=== PATIENT | female | born 1995 | race Caucasian/White ===

== ENCOUNTER 2019-07-19 19:19 | Emergency (ER) | payer MEDICAID ==
[2019-07-19 19:32] VITALS: BP 115/64
--- NOTE | 2019-07-19 19:48 | ED Physician Documentation ---
History of Present Illness - Stated complaint Stated Complaint: R EAR PAIN - Chief complaint Chief Complaint: General - History obtained from History obtained from: Patient - Additonal information Additional information: Patient is a healthy 24-year-old female with no past medical history. She is here today with a 3 to 4-day history of right-sided ear aches. She states she now has a left-sided earache that developed today. She denies any runny nose, sinus congestion, sore throat, neck pain, chills, or fevers. Has no dyspnea or cough. She states she did travel back from [place] approximately 1 week ago by plane. Had no symptoms after that for approximately 3 to 4 days. Patient denies any medications for her discomfort. She has no further complaints or concerns at this time. Review of Systems Constitutional: denies: Fever, Myalgias Eyes: denies: Discharge Ears: reports: Ear pain. denies: Loss of hearing, Drainage/discharge, Tinnitus/ringing, Foreign body, Reviewed and negative Nose: denies: Rhinorrhea / runny nose Throat: denies: Dental pain / toothache, Oral lesions / sores, Sore throat, Swollen tonsils Respiratory: denies: Dyspnea, Cough, Hemoptysis GI: denies: Abdominal Pain, Nausea, Vomiting Skin: denies: Rash Musculoskeletal: denies: Neck pain PD PAST MEDICAL HISTORY - Past Medical History Past Medical History: Yes Psych: Depression - Past Surgical History Past Surgical History: Yes Ortho: Other - Social History Does the pt smoke?: No Smoking Status: Never smoker Does the pt drink ETOH?: No Does the pt have substance abuse?: No - Immunizations Immunizations are current?: Yes PD ED PE NORMAL - General General: Alert and oriented X 3 - HEENT HEENT: Atraumatic, PERRL, Moist mucous membranes, Other (Bilateral tympanic membrane's are pearly zaragoza. No bulging or erythema was appreciated. Bony ossicles are visualized.Ear canals are clear, no edema, or erythema.) - Neck Neck: Supple, no meningeal sign - Cardiac Cardiac: RRR - Respiratory Respiratory: No respiratory distress Results - Vitals Vitals: Vital Signs - 24 hr 07/19/19 19:30 Temperature 36.8 C Heart Rate 91 Respiratory 16 Rate Blood Pressure 115/64 O2 Saturation 97 Oxygen O2 Source Room air PD MEDICAL DECISION MAKING - ED course Complexity details: other (Discussed symptomatic care at home. Patient agrees to take Tylenol or Profen as needed. She can also add [id number]-[id number] pseudoephedrine. Discuss the differential diagnosis which also included eustachian tube dysfunction. She is asked to contact her primary care provider if her symptoms persist. She may return to the emergency room anytime for any emergent changes or concerns.) Departure - Departure Disposition: ED Transfer to [facility] Clinical Impression: Otalgia of both ears Condition: Stable Comments: Use [id number] Tylenol 500 mg every 6-8 hours as needed for comfort. You may also use jxjd-bqd-[id number] ibuprofen 600 mg every 8 hours additionally. Cjws-bpi-esdhqbk pseudoephedrine may also help with your symptoms. If your symptoms do persist please contact your primary care provider to schedule follow-up appointment. Please return to emergency room anytime for emergent changes or concern.
== END 2019-07-19 19:54 | disposition home or self-care (01) ==
LOC: ED 19:19
DX: H92.03 Otalgia, bilateral (principal)
CPT/HCPCS: 99281; 99283

== ENCOUNTER 2019-11-11 16:04 | Emergency (ER) | payer MEDICAID ==
[2019-11-11] MEDS ORDERED: SODIUM CHLORIDE 0.9% 1,000 ML IV STA (16:24)
[2019-11-11] MEDS ORDERED: diphenhydrAMINE INJ 50 MG/ML VIAL IVP STA (16:24)
[2019-11-11] MEDS ORDERED: METOCLOPRAMIDE 10 MG/2 ML VIAL IVP STA (16:24)
--- NOTE | 2019-11-11 16:29 | ED Physician Documentation ---
History of Present Illness - Stated complaint Stated Complaint: RAPID HR, SHAKY - Chief complaint Chief Complaint: Abd Pain - History obtained from History obtained from: Patient - Additonal information Additional information: 24-year-old woman with history of depression anxiety presents with multiple complaints, most pressing is that with a history of only minimal migraines in the past she has had increased headaches that are intermittent over the last week. She describes throbbing up skip occipital headaches with spots in her vision, light sensitivity and nausea. Also since yesterday she has had diarrhea but not severe. Only every few hours. No blood in it. No fevers. She notes rapid heart rate starting about an hour ago. Denies drug or alcohol abuse. No possibility of she thinks. Review of Systems Constitutional: reports: Fatigue. denies: Fever, Chills Eyes: reports: Photophobia. denies: Decreased vision Ears: denies: Loss of hearing, Ear pain Nose: denies: Rhinorrhea / runny nose, Congestion Throat: denies: Sore throat Cardiac: denies: Chest pain / pressure, Palpitations Respiratory: denies: Dyspnea, Cough GI: reports: Nausea, Diarrhea. denies: Abdominal Pain, Vomiting : denies: Dysuria, Frequency PD PAST MEDICAL HISTORY - Past Medical History Psych: Depression - Past Surgical History Past Surgical History: Yes Ortho: Other - Present Medications Home Medications: Ambulatory Orders Medication Instructions Recorded Confirmed Bupropion HCl [Wellbutrin Xl] 300 mg PO DAILY 11/11/19 11/11/19 DULoxetine [Cymbalta] 60 mg PO DAILY 11/11/19 11/11/19 SUMAtriptan [Imitrex] 25 mg PO BID PRN #10 tablet 11/11/19 - Allergies Allergies/Adverse Reactions: Allergies Allergy/AdvReac Type Severity Reaction Status Date / Time DAYQUIL/NYQUIL cough Allergy Unknown Uncoded 11/11/19 16:21 medication - Social History Does the pt smoke?: No Smoking Status: Never smoker Does the pt drink ETOH?: No Does the pt have substance abuse?: No - Immunizations Immunizations are current?: Yes PD ED PE NORMAL - Vitals Vital signs reviewed: Yes - General General: Alert and oriented X 3, No acute distress - HEENT HEENT: PERRL, EOMI, Pharynx benign - Neck Neck: Supple, no meningeal sign, No bony TTP - Cardiac Cardiac: RRR, No murmur - Respiratory Respiratory: No respiratory distress, Clear bilaterally - Abdomen Abdomen: Normal bowel sounds, Soft, Non tender - Back Back: No CVA TTP, No spinal TTP - Derm Derm: Normal color, Warm and dry - Extremities Extremities: No edema, No calf tenderness / cord - Neuro Neuro: Alert and oriented X 3, No motor deficit, No sensory deficit, Normal speech Results - Vitals Vitals: Vital Signs - 24 hr 11/11/19 11/11/19 11/11/19 16:06 17:05 17:59 Temperature 37.2 C Heart Rate 106 H 96 89 Respiratory 18 18 18 Rate Blood Pressure 126/104 H 114/81 H 116/81 H O2 Saturation 100 98 98 Oxygen O2 Source Room air - EKG (time done) 1633 Rate: Rate (enter#) (96) Rhythm: NSR [place]: Normal Intervals: Normal [place] QRS: Normal Ischemia: Normal ST segments Computer interpretation: Agree with computer - Labs Labs: Laboratory Tests 11/11/19 11/11/19 11/11/19 16:36 16:37 16:37 WBC 7.4 RBC 4.85 Hgb 14.3 Hct 42.3 MCV 87.2 MCH 29.5 MCHC 33.8 RDW 12.3 Plt Count 355 MPV 9.3 Neut # (Auto) 4.7 Lymph # (Auto) 1.7 [place] # (Auto) 0.8 Eos # (Auto) 0.1 Baso # (Auto) 0.0 Absolute Nucleated RBC 0.00 Nucleated RBC % 0.0 D-Dimer Sodium 136 Potassium 3.8 Chloride 101 Carbon Dioxide 25 Anion Gap 10.0 BUN 13 Creatinine 0.8 Estimated GFR (MDRD) 88 L Glucose 116 H Calcium 9.1 Total Bilirubin 1.0 AST 20 ALT 23 Alkaline Phosphatase 75 Total Protein 8.2 Albumin 4.0 Globulin 4.2 Albumin/Globulin Ratio 1.0 Lipase 26 TSH Urine Color YELLOW Urine Clarity HAZY Urine pH 6.0 Ur Specific [place] 1.025 Urine Protein NEGATIVE Urine Glucose (UA) NEGATIVE Urine Ketones NEGATIVE Urine Occult Blood MODERATE H Urine Nitrite NEGATIVE Urine Bilirubin NEGATIVE Urine Urobilinogen 0.2 (NORMAL) Ur Leukocyte Esterase NEGATIVE Urine RBC 0-5 Urine WBC 0-3 Ur Squamous Epith Cells FEW Squamous Urine Bacteria Rare Ur Microscopic Review INDICATED Urine Culture Comments NOT INDICATED Urine HCG, Qual NEGATIVE Urine Opiates Screen NEGATIVE Ur Oxycodone Screen NEGATIVE Urine Methadone Screen NEGATIVE Ur Propoxyphene Screen NEGATIVE Ur Barbiturates Screen NEGATIVE Ur Tricyclics Screen NEGATIVE Ur Phencyclidine Scrn NEGATIVE Ur Amphetamine Screen NEGATIVE U Methamphetamines Scrn NEGATIVE U Benzodiazepines Scrn NEGATIVE Urine Cocaine Screen NEGATIVE U Cannabinoids Screen NEGATIVE 11/11/19 11/11/19 16:37 16:37 WBC RBC Hgb Hct MCV MCH MCHC RDW Plt Count MPV Neut # (Auto) Lymph # (Auto) [place] # (Auto) Eos # (Auto) Baso # (Auto) Absolute Nucleated RBC Nucleated RBC % D-Dimer 224.8 Sodium Potassium Chloride Carbon Dioxide Anion Gap BUN Creatinine Estimated GFR (MDRD) Glucose Calcium Total Bilirubin AST ALT Alkaline Phosphatase Total Protein Albumin Globulin Albumin/Globulin Ratio Lipase TSH 1.94 Urine Color Urine Clarity Urine pH Ur Specific [place] Urine Protein Urine Glucose (UA) Urine Ketones Urine Occult Blood Urine Nitrite Urine Bilirubin Urine Urobilinogen Ur Leukocyte Esterase Urine RBC Urine WBC Ur Squamous Epith Cells Urine Bacteria Ur Microscopic Review Urine Culture Comments Urine HCG, Qual Urine Opiates Screen Ur Oxycodone Screen Urine Methadone Screen Ur Propoxyphene Screen Ur Barbiturates Screen Ur Tricyclics Screen Ur Phencyclidine Scrn Ur Amphetamine Screen U Methamphetamines Scrn U Benzodiazepines Scrn Urine Cocaine Screen U Cannabinoids Screen - Rads (name of study) CT Head Radiology: EMP read contemporaneously (normal) PD MEDICAL DECISION MAKING - ED course ED course: 24-year-old woman with remote history of infrequent migraines presents with an exacerbation of same, feeling much better after Reglan and Benadryl IV. Cranial imaging and labs were normal noting other complaints including shortness of breath, Palpitations and, fatigue. Departure - Departure Disposition: 01 Home, Self Care Clinical Impression: Diarrhea Qualifiers: Diarrhea type: functional diarrhea Qualified Code(s): K59.1 - Functional diarrhea Migraine Qualifiers: Migraine type: with aura Status migrainosus presence: with status migrainosus Intractability: not intractable Qualified Code(s): G43.101 - Migraine with aura, not intractable, with status migrainosus Condition: Good Record reviewed to determine appropriate education?: Yes Instructions: ED Diarrhea Viral, ED Headache Migraine Prescriptions: SUMAtriptan [Imitrex] 25 mg PO BID PRN #10 tablet PRN Reason: Headache Comments: Work-up today demonstrated a normal head CT, complete lab work including electrolytes, renal function, liver function, heart testing, blood clot testing were all normal and negative. Return for new or worsening symptoms. Follow-up with your primary care physician next available appointment. Discharge Date/Time: 11/11/19 17:59
[2019-11-11 16:45] LABS: BASOPHILS % (AUTO) 0.5 %; EOSINOPHILS # (AUTO) 0.1 10^3/uL (0.0-0.7); EOSINOPHILS % (AUTO) 1.2 %; HGB - HEMOGLOBIN 14.3 g/dL (12.0-16.0); LYMPHOCYTES # (AUTO) 1.7 10^3/uL (1.5-3.5); LYMPHOCYTES % (AUTO) 23.2 %; MEAN CORPUSCULAR HEMOGLOBIN 29.5 pg (27.0-31.0); MEAN CORPUSCULAR HGB CONC 33.8 g/dL (32.0-36.0); MEAN CORPUSCULAR VOLUME 87.2 fL (81.0-99.0); MEAN PLATELET VOLUME 9.3 fL (7.9-10.8); MONOCYTES # (AUTO) 0.8 10^3/uL (0.0-1.0); MONOCYTES % (AUTO) 10.7 %; NEUTROPHILS # (AUTO) 4.7 10^3/uL (1.5-6.6); NEUTROPHILS % (AUTO) 64.1 %; PLT - PLATELET COUNT 355 10^3/uL (130-450); RED BLOOD COUNT 4.85 10^6/uL (4.20-5.40); RED CELL DISTRIBUTION WIDTH 12.3 % (12.0-15.0); WHITE BLOOD COUNT 7.4 x10^3/uL (4.8-10.8)
[2019-11-11 17:00] LABS: CALCIUM 9.1 mg/dL (8.5-10.3); CREATININE 0.8 mg/dL (0.4-1.0); TOTAL PROTEIN 8.2 g/dL (6.7-8.2)
[2019-11-11 17:00] LABS: MUDS CUTOFF CONCENTRATIONS CUTOFF CONC BELOW:
[2019-11-11 17:01] LABS: BILIRUBIN,URINE NEGATIVE (NEGATIVE); GLUCOSE, URINE (UA) NEGATIVE (NEGATIVE); KETONES,URINE (UA) NEGATIVE (NEGATIVE); LEUKOCYTE ESTERASE, URINE NEGATIVE (NEGATIVE); NITRITE,URINE NEGATIVE (NEGATIVE); OCCULT BLOOD,URINE MODERATE (NEGATIVE); PROTEIN,URINE NEGATIVE (NEGATIVE); UROBILINOGEN,URINE 0.2 (NORMAL) E.U./dL (NORMAL)
[2019-11-11 17:05] LABS: CLARITY,URINE HAZY (CLEAR); HCG UR QUAL NEGATIVE
--- NOTE | 2019-11-11 17:08 | CT Report ---
PROCEDURE: HEAD WO INDICATIONS: new headaches TECHNIQUE: Noncontrast 4.5 mm thick angled axial sections acquired from the foramen magnum to the vertex. For r adiation dose reduction, the following was used: automated exposure control, adjustment of mA and/or kV according to patient size. COMPARISON: None. FINDINGS: Image quality: Excellent. CSF spaces: Basal cisterns are patent. No extra-axial fluid collections. Ventricles are normal in size and shape. Brain: No midline shift. No intracranial masses or hemorrhage. Romo-white matter interface is norm al. Skull and face: Calvarium and visualized facial bones are intact, without suspicious lesions. Sinuses: Visualized sinuses and mastoids are clear. IMPRESSION: No acute intracranial abnormality. Reviewed by: Jai Zimmerman MD on 11/11/2019 5:06 PM PDT Approved by: Jai Zimmerman MD on 11/11/2019 5:06 PM PDT Station ID: [id number]
[2019-11-11 17:14] LABS: BACTERIA,URINE Rare /HPF (None Seen); RBC,URINE 0-5 /HPF (0-5); SQUAMOUS EPITHELIAL CELL,UR FEW Squamous (<= Few)
[2019-11-11 17:15] LABS: AMPHETAMINE SCREEN,URINE NEGATIVE (NEGATIVE); COCAINE SCREEN URINE NEGATIVE (NEGATIVE); METHAMPHETAMINES SCREEN, URINE NEGATIVE (NEGATIVE); OPIATE SCREEN, URINE NEGATIVE (NEGATIVE)
[2019-11-11 17:16] LABS: BENZODIAZEPINES SCREEN, URINE NEGATIVE (NEGATIVE); METHADONE SCREEN, URINE NEGATIVE (NEGATIVE); OXYCODONE SCREEN, URINE NEGATIVE (NEGATIVE); PROPOXYPHENE SCREEN, URINE NEGATIVE (NEGATIVE); TRICYCLIC ANTIDEPRESSANT,URINE NEGATIVE (NEGATIVE)
[2019-11-11 18:00] VITALS: BP 116/81
== END 2019-11-11 17:59 | disposition home or self-care (01) ==
LOC: ED 16:04
DX: K59.1 Functional diarrhea (principal); G43.101 Migraine with aura, not intractable, with status migrainosus; Z20.828 Contact with and (suspected) exposure to other viral communicable diseases
CPT/HCPCS: 36415; 70450; 80053; 80306; 81001; 81025; 83690; 84443; 85025; 85379; 87635; 93005; 96361; 96374; 99284; J1200; J2765; 81003; 87086